=== PATIENT | female | born 1970 | race Caucasian/White ===

== ENCOUNTER 2016-10-22 07:51 | Emergency (ER) | payer OTHER ==
--- NOTE | 2016-10-22 09:11 | RAD ---
CHEST - 2 VIEWS COMPARISON: Chest 2 views, 09/01/2015 HISTORY: Cough for one month. FINDINGS: Views: Frontal and lateral chest Lungs: Normal Heart and vessels: Normal Trachea and bronchi: Normal Mediastinum and [place]: Normal Costophrenic sulci: Normal Chest wall and bones: Normal. Upper abdomen: No acute finding. Cholecystectomy clips. IMPRESSION: Negative 2 view chest.
== END 2016-10-22 09:45 | disposition home or self-care (01) ==
LOC: ED 07:51
DX: R05 Cough (principal); R11.2 Nausea with vomiting, unspecified